=== PATIENT | female | born 1950 | race Caucasian/White ===

== ENCOUNTER 2016-11-21 18:51 | Emergency (ER) | payer OTHER ==
[~2016-11-21] VITALS: Ht 170.2 cm; Wt 110.4 kg
[~2016-11-21 18:51] MED LIST: AMBIEN10 MG PO; BACTRIM,SEPT1 TABLET PO; BENADRYL25 MG PO; BRINTELLIX10 MG PO; CARAFATE1 GM PO; DAILY VALUE1 EACH PO; DESYREL 150 MG150 MG PO; EFFEXOR XR150 MG PO; EFFEXOR XR75 MG PO; EFFEXOR75 MG PO; FLONASE16 G1 BOTH NARES; HAIR, SKIN & N1 EAC1 PO; K-DUR10 MEQ PO; LASIX20 MG PO; MOBIC15 MG PO; NEURONTIN300 MG PO; OXYCONTIN10 MG PO; PERCOCET 5/31 TABLET PO; PRAVACHOL20 MG PO; PREDNISONE10 MG PO; PRILOSEC40 MG PO; RELAFEN750 MG PO; VITAMIN D31000 UNI2 PO; VITAMIN E400 UNIT PO; VOLTAREN75 MG PO; XYZAL5 MG PO
[2016-11-21 22:05] VITALS: BP 157/81
== END 2016-11-21 22:07 | disposition home or self-care (01) ==
LOC: EME 18:51 → RME 18:51
DX: S61.412A Laceration without foreign body of left hand, initial encounter (principal); W25.XXXA Contact with sharp glass, initial encounter; Y92.009 Unspecified place in unspecified non-institutional (private) residence as the place of occurrence of the external cause; Z88.2 Allergy status to sulfonamides; Z88.0 Allergy status to penicillin
CPT/HCPCS: 99281; 99283

== ENCOUNTER 2017-02-25 12:14 | Day surgery (SDC) | payer OTHER ==
[~2017-02-25] VITALS: Ht 170.2 cm; Wt 99.8 kg
[~2017-02-25 12:14] MED LIST changes: +ADVAIR 250/501 DISK IH; +ALLEGRA ALLERG180 MG PO; -PERCOCET 5/31 TABLET PO; +PERCOCET 7.51 TABLET PO; +PRILOSEC20 MG PO; -PRILOSEC40 MG PO
== END 2017-02-25 14:50 | disposition home or self-care (01) ==
LOC: PAIN 12:14 → SDC 13:00 → PAIN 14:50
DX: M47.812 Spondylosis without myelopathy or radiculopathy, cervical region (principal); M12.88 Other specific arthropathies, not elsewhere classified, other specified site; G89.29 Other chronic pain; M25.511 Pain in right shoulder; F41.9 Anxiety disorder, unspecified; F32.9 Major depressive disorder, single episode, unspecified; Z88.8 Allergy status to other drugs, medicaments and biological substances
CPT/HCPCS: J1030; J2250; J3010; S0020

== ENCOUNTER 2017-03-27 07:07 | Day surgery (SDC) | payer OTHER ==
[~2017-03-27] VITALS: Ht 170.2 cm; Wt 99.8 kg
== END 2017-03-27 08:55 | disposition home or self-care (01) ==
LOC: PAIN 07:07 → SDC 07:30 → PAIN 07:30
PROC: 01513ZZ Destruction of Cervical Nerve, Percutaneous Approach (ICD-10-PCS; principal; 2017-03-27)
DX: M47.812 Spondylosis without myelopathy or radiculopathy, cervical region (principal); M50.30 Other cervical disc degeneration, unspecified cervical region; M12.88 Other specific arthropathies, not elsewhere classified, other specified site; F41.9 Anxiety disorder, unspecified; F32.9 Major depressive disorder, single episode, unspecified; G89.29 Other chronic pain; M25.511 Pain in right shoulder; J45.909 Unspecified asthma, uncomplicated; E78.2 Mixed hyperlipidemia; E66.9 Obesity, unspecified; Z68.37 Body mass index [BMI] 37.0-37.9, adult; Z88.0 Allergy status to penicillin
CPT/HCPCS: J1030; J2250; J3010; S0020

== ENCOUNTER 2017-04-03 07:47 | Day surgery (SDC) | payer OTHER ==
[~2017-04-03] VITALS: Ht 170.2 cm; Wt 99.8 kg
== END 2017-04-03 09:58 | disposition home or self-care (01) ==
LOC: PAIN 07:47 → SDC 08:30 → PAIN 08:30
PROC: 3E0T3TZ Introduction of Destructive Agent into Peripheral Nerves and Plexi, Percutaneous Approach (ICD-10-PCS; principal; 2017-04-03)
PROC: BR141ZZ Fluoroscopy of Cervical Facet Joint(s) using Low Osmolar Contrast (ICD-10-PCS; principal; 2017-04-03)
DX: M47.22 Other spondylosis with radiculopathy, cervical region (principal); M50.11 Cervical disc disorder with radiculopathy, high cervical region; M25.511 Pain in right shoulder; G89.29 Other chronic pain; M47.817 Spondylosis without myelopathy or radiculopathy, lumbosacral region; E78.2 Mixed hyperlipidemia; M79.1 Myalgia; E66.9 Obesity, unspecified; Z68.34 Body mass index [BMI] 34.0-34.9, adult; Z79.891 Long term (current) use of opiate analgesic; Z88.0 Allergy status to penicillin; Z88.2 Allergy status to sulfonamides
CPT/HCPCS: J1030; J2250; J3010; S0020

== ENCOUNTER → 2017-09-08 | Outpatient (CLI) | payer MEDICARE, OTHER ==
[~2017-09-08] MED LIST changes: +BEVESPI AEROS10.7 GM IH; +PROAIR HFA8.5 GM IH
== END | disposition home or self-care (01) ==
LOC: CDC 12:00
DX: Z01.810 Encounter for preprocedural cardiovascular examination (principal); S64.32XA Injury of digital nerve of left thumb, initial encounter; M79.642 Pain in left hand; I44.1 Atrioventricular block, second degree
CPT/HCPCS: 93000

== ENCOUNTER → 2017-11-26 | Outpatient (CLI) | payer OTHER ==
[~2017-11-26] MED LIST changes: +ABILIFY5 MG PO; +ASTEPRO 0.15%30 ML BOTH NARES; +AUGMENTIN875 MG PO; +PERCOCET 5/31 TABLET PO; -PERCOCET 7.51 TABLET PO; +PROVENTIL,2.5 MG/3 M IH; +REMERON30 M2 PO; +SINGULAIR10 MG PO
== END | disposition home or self-care (01) ==
LOC: RES 10:00
DX: R05 Cough (principal)
CPT/HCPCS: 94070

== ENCOUNTER 2017-11-28 07:53 | Day surgery (SDC) | payer OTHER ==
[~2017-11-28] VITALS: Ht 170.2 cm; Wt 102.1 kg
[~2017-11-28 07:53] MED LIST changes: -ABILIFY5 MG PO; -ASTEPRO 0.15%30 ML BOTH NARES; -PERCOCET 5/31 TABLET PO; +PERCOCET 7.51 TABLET PO; -PROVENTIL,2.5 MG/3 M IH
[2017-11-28 08:24] VITALS: BP 139/95
[2017-11-28 12:04] VITALS: BP 128/76
[2017-11-28 13:00] VITALS: BP 107/69
== END 2017-11-28 13:00 | disposition home or self-care (01) ==
LOC: SDC
PROC: 01Q40ZZ Repair Ulnar Nerve, Open Approach (ICD-10-PCS; principal; 2017-11-28)
DX: S64.32XA Injury of digital nerve of left thumb, initial encounter (principal); E78.5 Hyperlipidemia, unspecified; F32.9 Major depressive disorder, single episode, unspecified; Z96.653 Presence of artificial knee joint, bilateral; Z96.643 Presence of artificial hip joint, bilateral
CPT/HCPCS: 93005; C9352; J0690; J1100; J2250; J2405; J7643; Q0175; S0020

== ENCOUNTER 2017-12-15 10:40 | Day surgery (SDC) | payer OTHER ==
[~2017-12-15] VITALS: Ht 170.2 cm; Wt 108.9 kg
[~2017-12-15 10:40] MED LIST changes: +ABILIFY5 MG PO; +ASTEPRO 0.15%30 ML BOTH NARES; +PERCOCET 5/31 TABLET PO; -PERCOCET 7.51 TABLET PO; +PROVENTIL,2.5 MG/3 M IH
== END 2017-12-15 12:02 | disposition home or self-care (01) ==
LOC: PAIN 10:40 → SDC 11:00 → PAIN 12:02
DX: M51.16 Intervertebral disc disorders with radiculopathy, lumbar region (principal); M47.27 Other spondylosis with radiculopathy, lumbosacral region; M53.3 Sacrococcygeal disorders, not elsewhere classified; K21.9 Gastro-esophageal reflux disease without esophagitis; J45.909 Unspecified asthma, uncomplicated; Z79.891 Long term (current) use of opiate analgesic
CPT/HCPCS: J1100; J2250

== ENCOUNTER 2018-01-15 09:52 | Day surgery (SDC) | payer OTHER ==
[~2018-01-15] VITALS: Ht 170.2 cm; Wt 108.9 kg
[~2018-01-15 09:52] MED LIST changes: +LORTAB 10-3251 EACH PO; -PERCOCET 5/31 TABLET PO
== END 2018-01-15 12:20 | disposition home or self-care (01) ==
LOC: PAIN 09:52 → SDC 11:00 → PAIN 11:00
DX: M51.16 Intervertebral disc disorders with radiculopathy, lumbar region (principal); M47.816 Spondylosis without myelopathy or radiculopathy, lumbar region; M46.92 Unspecified inflammatory spondylopathy, cervical region; J45.909 Unspecified asthma, uncomplicated
CPT/HCPCS: 80048; J1100; J2250